=== PATIENT | male | born 1955 | race Caucasian/White ===

== ENCOUNTER 2017-10-28 20:36 | Emergency (ER) | payer BC ==
[~2017-10-28] VITALS: Ht 182.9 cm; Wt 110.9 kg
[2017-10-28 20:38] VITALS: BP 166/80
[2017-10-28] MEDS ORDERED: LIDOCAINE-MPF 2% ,5ML SQ ONE (21:00)
[2017-10-28] MEDS ORDERED: LIDOCAINE-MPF 2% ,5ML ONE (21:04)
[2017-10-28] MEDS ORDERED: DIPH,PERTUSS(ACELL),TET VAC/PF 0.5 ML IM-VACC ONE (21:30)
== END 2017-10-28 22:16 | disposition home or self-care (01) ==
LOC: ED 21:00
DX: S80.11XA Contusion of right lower leg, initial encounter (principal); I10 Essential (primary) hypertension; E11.9 Type 2 diabetes mellitus without complications; E78.00 Pure hypercholesterolemia, unspecified; I25.2 Old myocardial infarction; X58.XXXA Exposure to other specified factors, initial encounter; Y93.89 Activity, other specified; Y92.89 Other specified places as the place of occurrence of the external cause; Y99.8 Other external cause status
CPT/HCPCS: 99281; 99283